=== PATIENT | male | born 1975 | race Caucasian/White ===

== ENCOUNTER → 2017-10-16 | Outpatient (CLI) | payer SELFPAY ==
[~2017-10-16] MED LIST: GLIPIZIDE5 MG PO; HCTZ 25MG25 MG PO; HIGH CHOLESTEROL; K-DUR 2020 MEQ PO; LISINOPRIL/HCTZ1 TA1 PO; LISINOPRIL10 MG PO; METFORMIN500 MG PO; NORVASC2.5 MG PO; NORVASC5 MG PO; PRAVACHOL 20MG20 MG PO; PRAVASTATIN20 MG PO
[2017-10-16 08:31] LABS: HEMOGLOBIN 16.7 g/dl (13.5-18.0)
[2017-10-16 08:39] LABS: ADJUSTED CALCIUM 8.8 mg/dL (8.4-10.2); ALBUMIN 4.5 gm/dL (3.5-5.0); BILIRUBIN,TOTAL 0.7 mg/dL (0.0-1.0); CALCIUM 9.2 mg/dL (8.4-10.2); CHOLESTEROL RISK RATIO 5.3; CREATININE, serum 0.99 mg/dL (0.66-1.25); POTASSIUM 3.9 mmol/L (3.4-5.0); TOTAL PROTEIN 7.7 gm/dL (6.4-8.2)
== END ==
LOC: COL.LAB 08:06
DX: I10 Essential (primary) hypertension (principal); Z86.39 Personal history of other endocrine, nutritional and metabolic disease